=== PATIENT | female | born 1960 | race Hispanic/Latino ===

== ENCOUNTER 2023-09-05 06:10 | Day surgery (SDC) | payer OTHER ==
[2023-09-04 09:24] LABS: BASOPHILS # (AUTO) 0.06 K/uL (0.00-0.20); EOSINOPHILS # (AUTO) 0.14 K/uL (0.00-0.70); EOSINOPHILS % (AUTO) 2.3 % (0.0-8.0); HEMATOCRIT 38.1 % (36-48); IMMATURE GRANULOCYTE ABSOLUTE 0.01 K/uL (0-1); LYMPHOCYTES # (AUTO) 2.3 K/uL (1.0-4.8); LYMPHOCYTES % (AUTO) 37.4 % (21.0-51.0); MEAN CORPUSCULAR HEMOGLOBIN 32.4 pg (27.0-33.0); MEAN CORPUSCULAR HGB CONC 34.9 g/dL (32.0-36.0); MEAN CORPUSCULAR VOLUME 92.7 fL (79-99); MONOCYTES # (AUTO) 0.6 K/uL (0.1-1.0); MONOCYTES % (AUTO) 9.6 % (3.0-13.0); NEUTROPHILS % (AUTO) 49.5 % (40.0-77.0); PLATELET COUNT (AUTO) 265 K/uL (130-400); RED BLOOD CELL COUNT(AUTO) 4.11 MIL/uL (4.00-5.50); RED CELL DISTRIBUTION WIDTH 13.2 % (11.0-15.5); WHITE BLOOD COUNT (AUTO) 6.1 K/uL (4.8-10.8)
[2023-09-04 09:33] LABS: CREATININE 1.3 mg/dL (0.5-1.0); POTASSIUM 3.2 mmol/L (3.5-5.1)
[2023-09-04 09:44] VITALS: BP 137/77; PULSE 77; RESP 18
[~2023-09-05] VITALS: Ht 167.6 cm; Wt 84.6 kg
[2023-09-05] VITALS (16 sets, daily range): BP systolic 118–135; BP diastolic 59–84; PULSE 87–97; RESP 11–20
[~2023-09-05 06:10] MED LIST: ATOR40TA71 PO; GLIP5TAB15 PO; HYDR25TA PO; IBUP-2077 PO; TYLENOL ARTHRITIS PO; VALS160T29 PO
[2023-09-05] MEDS ORDERED: ROPIVACAINE 0.5% 5MG/ML 30ML ONE (06:40)
[2023-09-05] MEDS ORDERED: LIDOCAINE HCL MPF 1% 5ML VIAL ONE (06:40)
[2023-09-05] MEDS ORDERED: PHENYLEPHRINE HCL 10 MG/ML 1ML VIAL IV ONE ×2 (06:45→09:35)
[2023-09-05] MEDS ORDERED: FAMOTIDINE 20MG VIAL IV ONE (07:02)
[2023-09-05] MEDS ORDERED: ONDANSETRON 4MG INJ ONE (07:05)
[2023-09-05] MEDS ORDERED: MIDAZOLAM HCL 1 MG/ML 2ML VIAL ONE (07:05)
[2023-09-05] MEDS ORDERED: PROPOFOL 10 MG/ML 20ML VIAL IV ONE (07:05)
[2023-09-05] MEDS ORDERED: EPHEDRINE SULFATE 50 MG/ML AMPULE ONE (07:05)
[2023-09-05] MEDS ORDERED: GLYCOPYRROLATE 0.2 MG/ML 5 ML VIAL ONE (07:05)
[2023-09-05] MEDS ORDERED: ROCURONIUM BROMIDE 10MG/1ML 5ML VL ONE (07:06)
[2023-09-05] MEDS ORDERED: FENTANYL CITRATE PF 50 MCG/1 ML 2ML VIAL ONE (07:06)
[2023-09-05] MEDS: 0.9%NACL 1000ML 1,000 ML IV ONE (07:07)
[2023-09-05] MEDS: CEFAZOLIN SODIUM 2 GM VIAL ONE (07:07)
[2023-09-05] MEDS: EPINEPHRINE 1 MG/ML 30ML VIAL IJ ONE (09:02)
[2023-09-05] MEDS ORDERED: NEOSTIGMINE METHYLSULFATE 1MG/ML IV ONE (11:18)
[2023-09-05] MEDS ORDERED: CEPH500B PO (11:47)
[2023-09-05] MEDS ORDERED: IBUP-2070 PO (11:47)
[2023-09-05] MEDS ORDERED: HYDR-4060 PO (11:47)
== END 2023-09-05 14:00 | disposition home or self-care (01) ==
LOC: DAH 06:10
PROVIDERS: ATTEND Orthopaedic Surgery
DX: M75.122 Complete rotator cuff tear or rupture of left shoulder, not specified as traumatic (principal); M25.512 Pain in left shoulder; M89.8X1 Other specified disorders of bone, shoulder; M75.22 Bicipital tendinitis, left shoulder; M25.812 Other specified joint disorders, left shoulder; I10 Essential (primary) hypertension; E78.5 Hyperlipidemia, unspecified; E11.9 Type 2 diabetes mellitus without complications; Z82.49 Family history of ischemic heart disease and other diseases of the circulatory system; Z83.3 Family history of diabetes mellitus; Z82.3 Family history of stroke; Z83.79 Family history of other diseases of the digestive system; Z79.1 Long term (current) use of non-steroidal anti-inflammatories (NSAID); Z79.84 Long term (current) use of oral hypoglycemic drugs; Z87.891 Personal history of nicotine dependence; Z79.899 Other long term (current) drug therapy; Z98.890 Other specified postprocedural states
CPT/HCPCS: 80048; 85025; 36415 ×2; 29827; 64415; 29826; 84132; 82948 ×2; A4663; J7030 ×2; A4649 ×2; J3490 ×5; J3010; J0171; J2250; J2704; J2405; J2710; J2795; J2371 ×2; J0690; A6204; A4930 ×2; C1713 ×3; A5120; A4215; A4223; A4222; A4221; A4600; G0168

== ENCOUNTER 2024-03-06 06:44 | Day surgery (SDC) | payer OTHER ==
[2024-03-04 10:49] LABS: BASOPHILS # (AUTO) 0.04 K/uL (0.00-0.20); BASOPHILS % (AUTO) 0.8 % (0.0-5.0); EOSINOPHILS # (AUTO) 0.08 K/uL (0.00-0.70); EOSINOPHILS % (AUTO) 1.6 % (0.0-8.0); HEMATOCRIT 41.9 % (36-48); IMMATURE GRANULOCYTE ABSOLUTE 0.01 K/uL (0-1); LYMPHOCYTES # (AUTO) 1.9 K/uL (1.0-4.8); LYMPHOCYTES % (AUTO) 36.3 % (21.0-51.0); MEAN CORPUSCULAR HEMOGLOBIN 33.2 pg (27.0-33.0); MEAN CORPUSCULAR HGB CONC 34.4 g/dL (32.0-36.0); MEAN CORPUSCULAR VOLUME 96.5 fL (79-99); MONOCYTES # (AUTO) 0.5 K/uL (0.1-1.0); NEUTROPHILS # (AUTO) 2.6 K/uL (1.8-7.7); NEUTROPHILS % (AUTO) 51.1 % (40.0-77.0); PLATELET COUNT (AUTO) 180 K/uL (130-400); RED BLOOD CELL COUNT(AUTO) 4.34 MIL/uL (4.00-5.50); WHITE BLOOD COUNT (AUTO) 5.1 K/uL (4.8-10.8)
[2024-03-04 11:12] VITALS: BP 127/75; PULSE 84; RESP 15; TEMP 97.4
[2024-03-04 12:29] LABS: CREATININE 1.1 mg/dL (0.5-1.0)
[~2024-03-06] VITALS: Ht 165.1 cm; Wt 93.3 kg
[2024-03-06] VITALS (16 sets, daily range): BP systolic 113–141; BP diastolic 56–93; PULSE 84–95; RESP 15–18; TEMP 97.2–97.7
[~2024-03-06 06:44] MED LIST changes: -IBUP-2077 PO
[2024-03-06] MEDS: INSULIN humuLIN R 100 UNIT/ML 3ML IV ONE (08:22)
[2024-03-06] MEDS: INSULIN humuLIN R 100 UNIT/ML 3ML ONE (08:36)
[2024-03-06] MEDS: ceFAZolin SODIUM 2 GM VIAL ONE (08:36)
[2024-03-06] MEDS: 0.9%NACL 1000ML 1,000 ML IV ONE (08:36)
[2024-03-06] MEDS ORDERED: proPOFol 10 MG/ML 20ML VIAL IV ONE (08:54)
[2024-03-06] MEDS ORDERED: FENTanyl CITRate PF 50 MCG/1 ML 2ML VIAL ONE (08:54)
[2024-03-06] MEDS ORDERED: SUCCINYLCHOLINE CHLORIDE 20 MG/ML 10 ML VIAL ONE (08:54)
[2024-03-06] MEDS ORDERED: rocuRONium bROMide 10MG/1ML 5ML VL ONE (08:54)
[2024-03-06] MEDS ORDERED: MIDAZOLAM HCL 1 MG/ML 2ML VIAL ONE (08:54)
[2024-03-06] MEDS ORDERED: phenylEPHRINE HCL 10 MG/ML 1ML VIAL IV ONE ×2 (09:23→11:30)
[2024-03-06] MEDS ORDERED: GLYCOPYRROLATE 0.2 MG/ML 5 ML VIAL ONE (09:57)
[2024-03-06] MEDS ORDERED: ALBUMIN (HUMAN) 5% 250 ML IV ONE (11:19)
[2024-03-06] MEDS ORDERED: HYDR-4060 PO (12:03)
[2024-03-06] MEDS ORDERED: CEPH500B PO (12:09)
--- NOTE | 2024-03-06 12:23 | OP ---
Operative Note: DATE OF PROCEDURE: 03/06/24 SURGEON: LEONIDES NEAL MD VACUUM DRIER TENDER: [Sharif Chang CFA] ANESTHESIA: [General anesthesia plus regional block] ANESTHESIOLOGIST/TANBARK PEELER: [Ko Monaco CRNA] PREOPERATIVE DIAGNOSIS: [Left shoulder biceps tendinitis. Status post left shoulder arthroscopic rotator cuff tear repair, subacromial decompression.] POSTOPERATIVE DIAGNOSIS: [Same] SYNOPSIS: [Arthrex 5.4 peek anchor] PROCEDURE: [Left shoulder diagnostic arthroscopy, open biceps tenodesis] ESTIMATED BLOOD LOSS: [50 mL] INDICATIONS: [The patient is a 63-year-old female that underwent an arthroscopic procedure several months ago but has continued to complain of pain in the biceps area. The patient has been brought to the operating room for arthroscopic versus open biceps tenodesis. Procedure understood, risks, benefits and possible complications and the patient agreed signed the consent form] DESCRIPTION OF PROCEDURE: [After placed in the patient's in the surgical table she was put in the general anesthesia and intubated. Then a regional block in the shoulder was performed. The surgical table was placed in the beach chair position and the patient was strapped and secured and then the left upper extremity was prepped and draped in the usual manner. Using the previous surgical arthroscopic scars we proceeded then to make an anterior and posterior incisions and blunt dissection was carried down through the posterior one with the trocar entering into the shoulder joint and then we proceeded to apply the arthroscope into this incision. Evaluation of the shoulder joint revealed the presence of normal glenohumeral joint, adequately repaired rotator cuff and significant amount of synovitis which covered the portion of the biceps tendon. We proceeded then to attempt to pass a cannula into the anterior portion of the shoulder unsuccessfully due to the scar tissue. At this point we removed the arthroscope and closed the incisions with number 2-0 Monocryl inverted stitches and then the larger incision was carried down in the anterolateral corner of the acromion for approximately inch and a half through the skin followed by dissection of the subcutaneous tissue then the deltoid tendon was split longitudinally and elevated from the anterior acromion. We noticed that the patient still has some significant narrow space between the rotator cuff and the laterally tilted acromion and with the use of the shaver we proceeded to open the space and removed a little bit of the tip of the acromion. Once these was achieved we proceeded to use the rasp to smooth the surface. Thick deltoid bursa was excised visualized in the rotator cuff. One of the sutures from the anchor was what seems to be loose in the subacromial area but the rotator cuff was completely healed. Then the deltoid tendon was identified and a longitudinal incision was carried down to expose it and retrieve it. There was a small synovial cysts present in the extradural deltoid and we proceeded then to his standing incision within the interval tissue following the deltoid and once we reached as much as possible we proceeded to place a scissor intra- articular and transect the deltoid as proximal as possible. The data was pull out of the joint and we proceeded then to market and then put a 5.4 Arthrex anchor previous use of the punch to make the entry hole and the anchor was inserted with a 2.0 Arthrex suture attached to it. Once the ankle was in position the wire inserter was removed then the biceps tendon was secured to the bici pital groove with a 2.0 Arthrex and the excess suture was then removed. Then with the use of the 2-0 sutures from the anchor we proceeded to tied to the tendon and then to the soft tissue covering the bicipital groove and then a 3rd suture was placed distal to the anchor attachment of the tendon and passed also through the tendon and repaired to the soft tissue. Once the prep was completed we proceeded then to irrigate the wound with antibiotic solutions and we proceeded then to remove more of the scar tissue present in the subacromial space and proceeded then to range the shoulder noted to have adequate range of motion. The deltoid fascia was closed distally with number one Vicryl simple stitches and proximally with a 2. Ethibond we proceeded to pass the sutures through the bone and bringing the deltoid to reapproximate to the acromion and the proximal portion of the total also was reapproximated to each side with 2. Ethibond simple stitches. The subcutaneous tissue was closed with 2-0 Monocryl inverted stitches and the skin was closed with 3-0 Monocryl subcuticularly. The wound were covered with a soft dressing. The patient was placed in the supine position awakened extubated taken to recovery room for follow-up by anesthesia asked the being transferred to her stretcher. There were no complications in the procedure.] LEONIDES NEAL MD Mar 06, 2024 12:23
== END 2024-03-06 14:02 | disposition home or self-care (01) ==
LOC: DAH 06:44
PROVIDERS: ATTEND Orthopaedic Surgery
DX: M75.22 Bicipital tendinitis, left shoulder (principal); I10 Essential (primary) hypertension; E11.9 Type 2 diabetes mellitus without complications; E66.01 Morbid (severe) obesity due to excess calories; E78.5 Hyperlipidemia, unspecified; Z79.01 Long term (current) use of anticoagulants; Z98.890 Other specified postprocedural states; Z79.899 Other long term (current) drug therapy
CPT/HCPCS: 80048; 85025; 36415; 23430; 64415; 82948 ×2; J1815; A4663; J7030 ×2; P9045; J0330; J3490 ×2; J2250; J2704; J2371 ×2; J0690; A6204; A4930 ×3; A4649; C1713 ×2; A5120; A4215; A4223; A4222; A4221; A4600; J3010

== ENCOUNTER 2024-12-10 12:30 | Emergency (ER) | payer BC ==
[~2024-12-10] VITALS: Ht 167.6 cm; Wt 82.6 kg
[~2024-12-10 12:30] MED LIST changes: +GLIP10TA16 PO; -GLIP5TAB15 PO; -VALS160T29 PO
[2024-12-10] MEDS: 0.9%NACL 1000ML 1,000 ML IV ONE (13:03)
[2024-12-10 13:12] LABS: IMMATURE GRANULOCYTE ABSOLUTE 0.01 K/uL (0-1); NUCLEATED RED BLOOD CELLS 0.0 % (0.0-0.19); PLATELET COUNT (AUTO) 285 K/uL (130-400); RED BLOOD CELL COUNT(AUTO) 4.56 MIL/uL (4.00-5.50); RED CELL DISTRIBUTION WIDTH 16.1 % (11.0-15.5); WHITE BLOOD COUNT (AUTO) 5.4 K/uL (4.8-10.8)
[2024-12-10 13:26] LABS: ASPARTATE AMINOTRANSFERASE 39.0 U/L (10-37); CREATININE 1.2 mg/dL (0.5-1.0); GLOMERULAR FILTR. RATE CALC 51.0 mL/min (>90); GLUCOSE,RANDOM 106.0 mg/dL (70-105); SODIUM SERUM 138.0 mmol/L (136-145); TOTAL PROTEIN, SERUM 8.3 g/dL (6.0-8.3); UREA NITROGEN, BLOOD 12.0 mg/dL (7-18)
--- NOTE | 2024-12-10 14:04 | EKG ---
[facility] Test Date: 2024-12-10 Test Time: 13:59:46 Pat Name: DIANE CONTEH Department: ED Room: Gender: F House Admin: [id number] : 1960 Requested By: GEO KINCAID Order Number: [id number] Reading MD: Jayant Osei Measurements Intervals [place] Rate: 62 P: 36 IL: 151 QRS: 30 QRSD: 81 T: 23 QT: 413 QTc: 421 Interpretive Statements Sinus rhythm Compared to ECG 09/25/2024 17:06:57 No significant changes Electronically Signed On 12-10-2024 15:35:57 CDT by Jayant Osei Please click the below link to view image of tracing.
[2024-12-10 14:24] VITALS: BP 187/86; PULSE 85; RESP 16; TEMP 96.8; O2SAT 100
[2024-12-10] MEDS ORDERED: FAMO-136 PO (15:32)
--- NOTE | 2024-12-10 15:33 | ERN ---
General Chief Complaint: Nausea,Vomiting,Diarrhea Stated Complaint: NAUSEA/ VOMITING Time Seen by MD: 12:32 Time Seen by Midlevel: 12:32 Source: patient History of Present Illness Initial Comments Patient is a 64-year-old female presenting to the emergency department for evaluation of persistent nausea. The patient was seen in our emergency department back on September 25 0 where he was found to have a ruptured gastric ulcer. She was admitted into the hospital where she was ultimately discharged six weeks later. Patient states that since surgery she has been having persistent nausea. She denies any abdominal pain, fever, chills, or any other symptoms at this time. Allergies: Coded Allergies: No Known Drug Allergies (Unverified Allergy, Unknown, 09/04/23) Home Meds Reported Medications Glipizide (Glipizide) 10 Mg Tablet, 10 MG PO DAILY, TAB 09/26/24 [Tylenol Arthritis] No Conflict Check, 1300 MG PO AD PRN for PAIN 09/04/23 Hydrochlorothiazide (Hydrochlorothiazide) 25 Mg Tablet, 25 MG PO AM, TAB 09/04/23 Atorvastatin Calcium (Atorvastatin Calcium) 40 Mg Tablet, 40 MG PO AM, TAB 09/04/23 Past Medical History Past Medical History: Diabetes-Type II Past Surgical History: Other Surgical History Other: GASTRIC ULCER SX Female( History) History: Not Applicable ROS Dictation CONSTITUTIONAL: Negative except for HPI HEAD/FACE: Negative except for HPI EENT: Negative except for HPI RESPIRATORY: Negative except for HPI GASTROINTESTINAL/ABDOMINAL: Negative except for HPI GENITOURINARY: Negative except for HPI MUSCULOSKELETAL: Negative except for HPI INTEGUMENTARY: Negative except for HPI NEUROLOGICAL/PSYCH: Negative except for HPI HEMATOLOGIC/LYMPHATIC: Negative except for HPI All Systems Negative, Except as noted above. 13 point review of systems assessed and all negative except for above. Physical Exam Physical Exam Dictation Vital Signs reviewed General Appearance: Alert, oriented x 3, no acute distress, well developed, nourished. Head and Face: non-traumatic. Eyes: PERRL, pink conjunctivas, eyelid no trauma, anterior chamber with arcus senilis. Ears: Pinnas intact and no signs of trauma or erythema ear canals clear and no discharge TM no erythema Nose: No discharge, no bleeding. Oropharynx: Mouth normal, tongue pink, pharynx clear,no erythema, tonsils no exudates, no abscesses noted, mucous membrane moist Neck: Supple, non-tender, no thyromegaly, no masses, no JVD, no bruits Breast:Deferred Chest:No tenderness, no crepitus, no paradoxical movement, no retractions Lungs:Clear, well-ventilated, symmetric, no rales, no wheezing, no rhonchi, no stridor, good breath sounds bilaterally Heart: Regular rate, regular rhythm, no murmur, no gallops Vascular: no peripheral edema, Abdomen: Soft, positive bowel sounds, nondistended, no guarding, nontender, no rebound, no masses no hepatomegaly, no splenomegaly, no Allison's sign, no hernias. Rectal: Deferred Genital: Deferred Neurological: Normal speech, motor function intact, sensory function intact Musculoskeletal: Neck nontender, full range of motion, back nontender, full range of motion, Extremities: nontender, full range of motion Skin: Color pink, dry, no turgor, no rash, no lacerations, no abrasions, no contusions. Lymphatic: Deferred Results Laboratory and Microbiology Lab and Micro Result Laboratory Tests Test 12/10/24 13:06 White Blood Count 5.4 K/uL (4.8-10.8) Red Blood Count 4.56 MIL/uL (4.00-5.50) Hemoglobin 13.0 g/dL (12.0-16.0) Hematocrit 39.9 % (36-48) Mean Corpuscular Volume 87.5 fL (79-99) Mean Corpuscular Hemoglobin 28.5 pg (27.0-33.0) Mean Corpuscular Hemoglobin Concent 32.6 g/dL (32.0-36.0) Red Cell Distribution Width 16.1 % (11.0-15.5) H Platelet Count 285 K/uL (130-400) Mean Platelet Volume 10.3 fL (7.5-10.5) Immature Granulocyte % (Auto) 0.2 % (0-1) Neutrophils (%) (Auto) 64.3 % (40.0-77.0) Lymphocytes (%) (Auto) 24.7 % (21.0-51.0) Monocytes (%) (Auto) 9.2 % (3.0-13.0) Eosinophils (%) (Auto) 0.9 % (0.0-8.0) Basophils (%) (Auto) 0.7 % (0.0-5.0) Neutrophils # (Auto) 3.5 K/uL (1.8-7.7) Lymphocytes # (Auto) 1.3 K/uL (1.0-4.8) Monocytes # (Auto) 0.5 K/uL (0.1-1.0) Eosinophils # (Auto) 0.05 K/uL (0.00-0.70) Basophils # (Auto) 0.04 K/uL (0.00-0.20) Absolute Immature Granulocyte (auto 0.01 K/uL (0-1) Nucleated Red Blood Cells 0.0 % (0.0-0.19) Sodium Level 138 mmol/L (136-145) Potassium Level 3.0 mmol/L (3.5-5.1) *L Chloride Level 95 mmol/L (101-111) L Carbon Dioxide Level 27 mmol/L (21-32) Blood Urea Nitrogen 12 mg/dL (7-18) Creatinine 1.2 mg/dL (0.5-1.0) H Glomerular Filtration Rate Calc 51 mL/min (>90) Random Glucose 106 mg/dL (70-105) H Lactic Acid Level 1.8 mmol/L (0.8-2.5) Total Calcium 9.9 mg/dL (8.5-10.1) Magnesium Level 2.00 mg/dL (1.80-2.40) Total Bilirubin 0.6 mg/dL (0.2-1.0) Aspartate Amino Transf (AST/SGOT) 39 U/L (10-37) H Alanine Aminotransferase (ALT/SGPT) 15 U/L (12-78) Alkaline Phosphatase 90 U/L (50-136) Troponin I High Sensitivity 12 ng/L (4-50) Total Protein 8.3 g/dL (6.0-8.3) Albumin 3.2 g/dL (3.5-5.0) L Lipase 67 U/L (16-77) Labs Reviewed?: Yes [facility] MDM: Differential diagnosis: Dehydration, pancreatitis, electrolyte abnormality There are no social concerns with this patient. Prescription drug management Prescriptions will include: Pepcid Medical management and examination interpretation discussions were had by me with other qualified healthcare professionals as indicated for the patient's care. ED Course Orders Procedure Category Date Status Time Cbc With Differential LAB 12/10/24 Complete 12:43 Comprehensive LAB 12/10/24 Complete Metabolic Panel 12:43 Lipase LAB 12/10/24 Complete 12:43 Magnesium LAB 12/10/24 Complete 12:43 Lactic Acid LAB 12/10/24 Complete 12:43 0.9%Nacl 1000ml (Ns PHA 12/10/24 Complete 1000ml) 13:00 Ondansetron 4mg Inj PHA 12/10/24 Complete (Zofran 4mg Inj) 13:00 Potassium Bicarb/Cit PHA 12/10/24 Complete Ac 25meq (K-Lyte Ta 14:00 12 Lead Ekg Tracing- EKG 12/10/24 Complete Technical 13:51 Troponin I High LAB 12/10/24 Complete Sensitivity 13:51 Hydralazine 20mg Inj PHA 12/10/24 Complete (Apresoline 20mg In 14:30 Ondansetron 4mg Inj PHA 12/10/24 Logged (Zofran 4mg Inj) 15:30 Famotidine 20mg Vial PHA 12/10/24 Logged (Pepcid 20mg Vial) 15:30 Current Medications Medications (Trade) Dose Ordered Sig/Tony Route PRN Reason Start Time Stop Time Status Last Admin Dose Admin Hydralazine HCl (APRESOLine 20MG INJ) 10 mg ONCE ONCE IV 12/10/24 14:30 12/10/24 14:31 DC Ondansetron HCl (zoFRAN 4MG INJ) 4 mg ONCE ONCE IVP 12/10/24 13:00 12/10/24 13:01 DC 12/10/24 13:03 Potassium Bicarbonate (K-Lyte Tablet Eff 25 Meq Tablet.eff) 50 meq ONCE ONCE PO 12/10/24 14:00 12/10/24 14:01 DC 12/10/24 14:00 Sodium Chloride 1,000 ml @ 0 mls/hr ONCE ONCE IV 12/10/24 13:00 12/10/24 13:01 DC 12/10/24 13:03 Vital Signs Date Time Temp Pulse Resp B/P (MAP) Pulse Ox O2 Delivery O2 Flow Rate FiO2 12/10/24 14:24 96.8 85 16 187/86 100 Room Air* 0 21 12/10/24 12:53 97.2 94 16 178/86 100 Room Air* 0 21 DX & DISP Disposition: Discharge Departure Impression: Primary Impression: Hypokalemia Additional Impression: Mild dehydration Condition: Stable Scripts Famotidine (Pepcid) 20 Mg Tablet 1 TAB PO BID for 30 Days, #60 TAB 0 Refills Prov: GEO KINCAID 12/10/24 Additional Instructions: Please avoid greasy, fried, spicy, acidic, or highly seasoned foods. No caffeine, alcohol, carbonated beverages, or NSAIDs. Sit upright after meals. Avoid lying flat for at least [id number] minutes. You may start with clear broth, chicken, beef, vegetable, fat free. You may take daily bit apple juice or white grape juice. You may also try herbal teas. Once you are tolerating liquids you may incorporate rise, strained vegetables hoops, smooth yogurt, protein shakes made with non acidic fruits like banana or pear. You may then escalate to a soft bland diet. Focus on low fat, non spicy, easily digestible foods. Grains: White rice, oatmeal, soft pasta, mashed potatoes Proteins: Porch/boiled chicken, turkey, flaky white fish, scrambled eggs Dairy: Low fat cauda cheese, soft cheese Fruits: Bananas, applesauce, canned peaches/pairs Vegetables: Deemed or pureed carrots, Zucchini, green beans, pumpkin, squash Referrals: PROSPER LU MD (PCP) Time of Disposition: 15:28 I have reviewed the case, and I agree with, Diagnosis and Plan I performed the substantive portion of the visit. I have reviewed and personally made and approve the management plan that is documented in the note by myself or the RICHA. I acknowledge for responsibility for the patient's management plan. GEO KINCAID Dec 10, 2024 15:32
[2024-12-10] MEDS: FAMOTIDINE 20MG VIAL IV ONE (15:48)
== END 2024-12-10 16:01 | disposition home or self-care (01) ==
LOC: EDH 12:30
DX: E86.0 Dehydration (principal); E87.6 Hypokalemia; E11.9 Type 2 diabetes mellitus without complications; Z79.84 Long term (current) use of oral hypoglycemic drugs; Z87.11 Personal history of peptic ulcer disease
CPT/HCPCS: 99284; 96374; 96361; 96375; 83735; 84484; 80053; 83690; 85025; 83605; 36415; 96376; 93005; J3490; J7030; J2405 ×2